=== PATIENT | female | born 1935 | race Caucasian/White ===

== ENCOUNTER 2017-01-02 09:58 | Outpatient (CLI) | payer MEDICARE ==
[2017-01-02 12:37] LABS: ALT (SGPT) 8 U/L (0-55); AST (SGOT) 13 U/L (5-34); Albumin 4.6 g/dL (3.4-4.8); Alkaline Phosphatase 106 U/L (40-150); Bilirubin, Direct 0.2 mg/dL (0.1-0.3); Bilirubin, Total 0.3 mg/dL (0.2-1.2); Cardiac Risk 2.9 (Less than 4.5); Cholesterol 159 mg/dL (< 200 Desired); HDL Cholesterol 55 mg/dL (>60 Neg Risk); LDL Cholesterol, Calculated 90 mg/dL; Protein, Total 7.1 g/dL (5.8-8.1); Triglycerides 69 mg/dL (Less than 150)
== END 2017-01-02 09:59 | disposition home or self-care (01) ==
LOC: NAVSJIPCSP 09:58
PROVIDERS: ATTEND Internal Medicine
DX: E78.5 Hyperlipidemia, unspecified (principal); Z79.899 Other long term (current) drug therapy
CPT/HCPCS: 36415; 80061; 80076

== ENCOUNTER 2017-04-03 09:54 | Outpatient (CLI) | payer MEDICARE ==
[2017-04-03 13:03] LABS: Cardiac Risk 3.2 (Less than 4.5)
== END 2017-04-03 09:55 | disposition home or self-care (01) ==
LOC: NAVSJIPCSP 09:54
PROVIDERS: ATTEND Internal Medicine
DX: E78.5 Hyperlipidemia, unspecified (principal); Z79.899 Other long term (current) drug therapy
CPT/HCPCS: 36415; 80061

== ENCOUNTER 2017-07-04 09:51 | Outpatient (CLI) | payer MEDICARE ==
[2017-07-04 12:42] LABS: Bilirubin Negative (Negative); Blood, Urine Negative (Negative); Clarity Clear (Clear); Glucose, Urine (Dipstick) Negative (Negative); Leukocyte Small (Negative); Nitrite Negative (Negative); Protein, Urine (Dipstick) Negative (Neg-Trace); Specific Gravity, Urine 1.015 (1.005-1.030); Urobilinogen 0.2 mg/dL (0.2-1.0); pH, Urine 5.5 (5.0-9.0)
[2017-07-04 12:44] LABS: #Eosinphils 0.3 thou/uL (0.0-0.7); #Lymphocytes 1.4 thou/uL (1.20-3.40); #Monocytes 0.4 thou/uL (0.11-0.59); #Neutrophils 3.9 thou/uL (1.40-6.50); %Basophils 0.5 % (0.0-1.0); %Eosinophils 4.3 % (0.0-10.0); %Lymphocytes 22.7 % (21.0-51.0); %Monocytes 6.4 % (0.0-10.0); %Neutrophils 66.1 % (42.0-75.0); Hemoglobin 12.1 g/dL (12.0-16.0); Mean Corpuscular HGB CONC 32.1 g/dL (32.0-36.0); Mean Corpuscular Volume 93.6 fl (81.0-99.0); Mean Platelet Volume 8.1 fL (7.4-10.4); Platelet Count 146 thou/uL (130-400); RBC Distribution Width 11.8 % (11.5-14.5); Red Blood Cell (RBC) Count 4.02 mill/uL (4.20-5.40)
[2017-07-04 12:58] LABS: ALT (SGPT) 9 U/L (8-55); AST (SGOT) 13 U/L (5-34); Albumin 4.4 g/dL (3.4-4.8); Alkaline Phosphatase 97 U/L (40-150); Anion Gap 15 mmol/L (10-20); BUN (Urea Nitrogen) 40 mg/dL (9.8-20.1); Bilirubin, Total 0.4 mg/dL (0.2-1.2); Calc. Creatinine Clearance 0 mL/min (70-130); Calcium 10.6 mg/dL (7.8-10.44); Carbon Dioxide 23 mmol/L (23-31); Cardiac Risk 2.9 (Less than 4.5); Chloride 108 mmol/L (98-107); Cholesterol 151 mg/dl (< 200 Desired); Estimated GFR-MDRD 38; Globulin 2.4 g/dL (2.4-3.5); Glucose 99 mg/dL (83-110); HDL Cholesterol 52 mg/dL (>60 Neg Risk); LDL Cholesterol, Calculated 84 mg/dL; Potassium 4.7 mmol/L (3.5-5.1); Protein, Total 6.8 g/dL (6.0-8.3); Sodium 141 mmol/L (136-145); Triglycerides 76 mg/dL (Less than 150)
[2017-07-04 14:05] LABS: Bacteria/HPF 2+ HPF (None Seen); Other Microscopic Description NO; RBC/HPF None Seen HPF (0-3); Squamous Epithelial 0-3 HPF (0-3)
== END 2017-07-04 09:52 | disposition home or self-care (01) ==
LOC: NAVSJIPCSP 09:51
PROVIDERS: ATTEND Internal Medicine
DX: I25.10 Atherosclerotic heart disease of native coronary artery without angina pectoris (principal); I11.9 Hypertensive heart disease without heart failure; E78.5 Hyperlipidemia, unspecified
CPT/HCPCS: 36415; 80053; 80061; 81003; 81015; 85025

== ENCOUNTER 2017-09-08 13:08 | Emergency (ER) | payer MEDICARE | END 2017-09-08 14:27 | disposition home or self-care (01) | LOC: NAV ERS 13:08 | DX: S81.811A Laceration without foreign body, right lower leg, initial encounter (principal); E78.5 Hyperlipidemia, unspecified; I10 Essential (primary) hypertension; E66.9 Obesity, unspecified; Z79.82 Long term (current) use of aspirin; Z79.899 Other long term (current) drug therapy; W01.10XA Fall on same level from slipping, tripping and stumbling with subsequent striking against unspecified object, initial encounter | CPT/HCPCS: 12001; 99282 ==

== ENCOUNTER 2017-09-21 13:43 | Emergency (ER) | payer MEDICARE | END 2017-09-21 14:50 | disposition home or self-care (01) | LOC: NAV ERS 13:43 | DX: T81.4XXA Infection following a procedure, initial encounter (principal); S81.811D Laceration without foreign body, right lower leg, subsequent encounter; I10 Essential (primary) hypertension; E78.5 Hyperlipidemia, unspecified; G89.29 Other chronic pain; Z79.82 Long term (current) use of aspirin; Z79.899 Other long term (current) drug therapy | CPT/HCPCS: 99282 ==

== ENCOUNTER 2019-08-11 18:42 | Emergency (ER) | payer MEDICARE ==
[~2019-08-11 18:42] MED LIST: Iopamidol 370 76% 100 ML VIAL ONE
[2019-08-11] MEDS ORDERED: Ondansetron PF 4 MG/2 ML Vial ONE (19:43)
[2019-08-11] MEDS ORDERED: Sodium Chloride 0.9% 0 ML ONE (19:43)
[2019-08-11] MEDS ORDERED: Sodium Chloride 0.9% 1,000 ML ONE (19:45)
[2019-08-11 20:00] LABS: #Basophils 0.1 thou/uL (0.0-0.2); #Eosinphils 0.1 thou/uL (0.0-0.7); #Lymphocytes 1.2 thou/uL (1.20-3.40); #Monocytes 0.5 thou/uL (0.11-0.59); #Neutrophils 4.7 thou/uL (1.40-6.50); %Basophils 0.8 % (0.0-1.0); %Eosinophils 1.5 % (0.0-10.0); %Lymphocytes 18.4 % (21.0-51.0); %Neutrophils 71.3 % (42.0-75.0); Hemoglobin 13.4 g/dL (12.0-16.0); Mean Corpuscular HGB CONC 33.6 g/dL (32.0-36.0); Mean Corpuscular Hemoglobin 30.8 pg (27.0-31.0); Mean Corpuscular Volume 91.8 fL (78.0-98.0); Mean Platelet Volume 7.4 fL (7.4-10.4); Platelet Count 129 thou/uL (130-400); RBC Distribution Width 10.7 % (11.5-14.5); Red Blood Cell (RBC) Count 4.34 mill/uL (4.20-5.40); White Blood Cell (WBC) Count 6.5 thou/uL (4.8-10.8)
[2019-08-11 20:18] LABS: ALT (SGPT) 13 U/L (8-55); AST (SGOT) 23 U/L (5-34); Albumin 4.6 g/dL (3.4-4.8); Alkaline Phosphatase 83 U/L (40-110); Anion Gap 22 mmol/L (10-20); BUN (Urea Nitrogen) 29 mg/dL (9.8-20.1); Bilirubin, Total 0.6 mg/dL (0.2-1.2); Calc. Creatinine Clearance 0 mL/min (70-130); Calcium 11.1 mg/dL (7.8-10.44); Carbon Dioxide 21 mmol/L (23-31); Chloride 95 mmol/L (98-107); Estimated GFR-MDRD 36; Globulin 2.6 g/dL (2.4-3.5); Glucose 121 mg/dL (83-110); Lipase 12 U/L (8-78); Potassium 4.8 mmol/L (3.5-5.1); Protein, Total 7.2 g/dL (6.0-8.3); Sodium 133 mmol/L (136-145)
[2019-08-11 20:22] LABS: Bilirubin Negative (Negative); Blood, Urine Trace (Negative); Glucose, Urine (Dipstick) Negative (Negative); Leukocyte Large (Negative); Nitrite Negative (Negative); Protein, Urine (Dipstick) Negative (Neg-Trace); Urobilinogen 0.2 mg/dL (Less than 2)
[2019-08-11 20:28] LABS: Bacteria/HPF 3+ HPF (None Seen); Clarity SL HAZY (Clear); RBC/HPF 0-3 HPF (0-3)
--- NOTE | 2019-08-11 22:41 | CT ---
CT OF THE ABDOMEN AND PELVIS WITH IV CONTRAST INDICATION: Nausea and vomiting COMPARISON: None FINDINGS: ABDOMEN: Lung bases: Clear. Small hiatal hernia. Liver: No focal lesion. Gallbladder: Normal appearing. Pancreas: Normal. Adrenal glands: Normal. Spleen: Normal. Kidneys and ureters: There is mild to moderate bilateral hydronephrosis and hydroureter. The bladder is moderately distended. There is a 2.4 cm cyst involving the interpolar of the left kidney. Vasculature: There are moderate to severe vascular calcifications involving the abdominal pelvic vasc ulature. Lymph nodes:No lymphadenopathy. Free fluid in abdomen:No free fluid is evident. PELVIS: Small and large bowel: There is a moderate amount retained stool within colon. Small bowel is of norm al caliber.. Appendix:Not definitely seen Bladder: Moderately distended Rectal and perirectal soft tissues:Normal. Reproductive structures: Not seen Free fluid in pelvis: No free fluid is evident. Lymphadenopathy pelvis: No lymphadenopathy is evident. Osseous structures: No acute osseous abnormality. No destructive osteolytic or osteoblastic lesion i s identified. There is scattered degenerative and osteoarthritic changes. There is grade 1 anterolisthesis of L4 and L5. There is diffuse osteopenia. Soft tissues:Normal. IMPRESSION: 1. Moderate bladder distention with mild to moderate bilateral hydronephrosis. Recommend correlation for chronic bladder outlet obstruction.
[2019-08-11] MEDS ORDERED: Cipro 250 MG TAB ONE (22:46)
== END 2019-08-11 23:05 | disposition home or self-care (01) ==
LOC: NAV ERS 18:42
DX: K59.00 Constipation, unspecified (principal); N39.0 Urinary tract infection, site not specified; R33.9 Retention of urine, unspecified; R11.0 Nausea; E78.5 Hyperlipidemia, unspecified; I10 Essential (primary) hypertension; Z87.891 Personal history of nicotine dependence; Z79.899 Other long term (current) drug therapy; Z79.82 Long term (current) use of aspirin
CPT/HCPCS: 74177; 80053; 81003; 81015; 83690; 85025; 87077; 87086; 87186; 96361; 96374; J2405; J7050; Q9967

== ENCOUNTER 2019-09-30 08:41 | Outpatient (CLI) | payer MEDICARE ==
--- NOTE | 2019-09-30 09:33 | ULT ---
BILATERAL RENAL ULTRASOUND: HISTORY: Renal cyst FINDINGS: The right kidney measures 7.6 cm in length and the left kidney measures 8.8 cm in length. No hydronep hrosis is seen on either side. There is a 2.3 cm cyst arising from the inferior pole of the left kidney. The urinary bladder is incompletely distended. IMPRESSION: Left renal cyst
== END 2019-09-30 08:42 | disposition home or self-care (01) ==
LOC: NAV ULT 08:41
PROVIDERS: ATTEND Urology
DX: N13.30 Unspecified hydronephrosis (principal); N28.1 Cyst of kidney, acquired
CPT/HCPCS: 76770

== ENCOUNTER 2021-06-18 14:51 | Emergency (ER) | payer MEDICARE ==
[2021-06-18 15:30] LABS: #Basophils 0.1 thou/uL (0.0-0.2); #Eosinphils 0.1 thou/uL (0.0-0.7); #Monocytes 0.6 thou/uL (0.11-0.59); %Basophils 0.6 % (0.0-1.0); %Eosinophils 0.9 % (0.0-10.0); %Lymphocytes 11.3 % (21.0-51.0); %Monocytes 6.8 % (0.0-10.0); %Neutrophils 80.4 % (42.0-75.0); Hemoglobin 14.1 g/dL (12.0-16.0); Mean Corpuscular HGB CONC 31.9 g/dL (32.0-36.0); Mean Corpuscular Hemoglobin 30.8 pg (27.0-31.0); Mean Corpuscular Volume 96.7 fL (78.0-98.0); Mean Platelet Volume 7.3 fL (7.4-10.4); Platelet Count 148 thou/uL (130-400); RBC Distribution Width 12.6 % (11.5-14.5); Red Blood Cell (RBC) Count 4.59 mill/uL (4.20-5.40); White Blood Cell (WBC) Count 8.8 thou/uL (4.8-10.8)
[2021-06-18 15:44] LABS: ALT (SGPT) 17 U/L (8-55); AST (SGOT) 18 U/L (5-34); Albumin 4.6 g/dL (3.4-4.8); Alkaline Phosphatase 62 U/L (40-110); Anion Gap 17 mmol/L (10-20); BUN (Urea Nitrogen) 20 mg/dL (9.8-20.1); Bilirubin, Total 0.7 mg/dL (0.2-1.2); Calc. Creatinine Clearance 0 mL/min (70-130); Calcium 10.7 mg/dL (7.8-10.44); Carbon Dioxide 22 mmol/L (23-31); Chloride 108 mmol/L (98-107); Globulin 2.9 g/dL (2.4-3.5); Glucose 136 mg/dL (83-110); Potassium 4.2 mmol/L (3.5-5.1); Protein, Total 7.5 g/dL (5.8-8.1); Sodium 143 mmol/L (136-145)
[2021-06-18 16:15] LABS: Bilirubin Negative (Negative); Blood, Urine Small (Negative); Clarity Cloudy (Clear); Glucose, Urine (Dipstick) Negative (Negative); Ketone, Urine Negative (Negative); Leukocyte Large (Negative); Nitrite Positive (Negative); Protein, Urine (Dipstick) 100 mg/dL (Neg-Trace); Urobilinogen 0.2 mg/dL (Less than 2)
[2021-06-18 16:21] LABS: Bacteria/HPF 4+ HPF (None Seen); RBC/HPF 0-3 HPF (0-3); WBC/HPF Greater Than 50 HPF (0-3)
[2021-06-18] MEDS ORDERED: cefTRIAXone\\ROCEPHIN 500 MG VIAL ONE (17:04)
[2021-06-18] MEDS ORDERED: Aspirin Chewable 81 MG TAB ONE ×2 (17:04→17:05)
[2021-06-18 18:03] LABS: SARS-CoV-2 NAA Rapid Test Not Detected (NotDetected)
[2021-06-18] MEDS ORDERED: Simvastatin 10 MG TAB ONE (19:45)
[2021-06-18] MEDS ORDERED: Metoprolol Tartrate 25 MG TAB ONE (19:45)
[2021-06-18] MEDS ORDERED: Losartan Potassium 50 MG TAB ONE (19:45)
[2021-06-18] MEDS ORDERED: traZODone HCl 50 MG TAB ONE ×2 (19:45→19:51)
== END 2021-06-18 22:45 | disposition short-term general hospital (02) ==
LOC: NAV ERS 14:51
DX: N39.0 Urinary tract infection, site not specified (principal); R07.9 Chest pain, unspecified; K59.00 Constipation, unspecified; I10 Essential (primary) hypertension; R53.1 Weakness; E78.5 Hyperlipidemia, unspecified; Z87.891 Personal history of nicotine dependence; Z20.822 Contact with and (suspected) exposure to COVID-19; Z79.82 Long term (current) use of aspirin; Z79.899 Other long term (current) drug therapy
CPT/HCPCS: 70450; 74176; 80053; 83605; 84484; 85025; 87077; 87086; 87186; 93005; U0002; 51701; 81003; 81015; 96374; J0696

== ENCOUNTER 2022-04-23 14:17 | Emergency (ER) | payer MEDICARE | END 2022-04-23 16:20 | disposition home or self-care (01) | LOC: NAV ERS 14:17 | DX: J20.9 Acute bronchitis, unspecified (principal); E78.5 Hyperlipidemia, unspecified; I10 Essential (primary) hypertension; Z87.891 Personal history of nicotine dependence; Z79.899 Other long term (current) drug therapy | CPT/HCPCS: 71045 ==

== ENCOUNTER 2022-05-04 08:46 | Outpatient (CLI) | payer MEDICARE | END 2022-05-04 08:47 | disposition home or self-care (01) | LOC: NAV RAD 08:46 | PROVIDERS: ATTEND Family Medicine | DX: R05.3 Chronic cough (principal) | CPT/HCPCS: 71046 ==